=== PATIENT | female | born 1990 | race Two or more races ===

== ENCOUNTER 2023-09-09 09:11 | Observation (INO) | payer BC ==
[2023-09-09 10:56] LABS: Basophils # (auto) 0.1 10 ^3/uL (0-0.2); Basophils % (auto) 0.5 % (0.0-2.0); Eosinophils # (auto) 0.1 10 ^3/uL (0-0.8); Eosinophils % (auto) 0.7 % (0.0-7.0); Hematocrit 36.3 % (36.0-46.0); Hemoglobin 11.9 g/dL (12.2-16.2); Lymphocytes # (auto) 2.1 10 ^3/uL (0.4-5.4); Lymphocytes % (auto) 15.3 % (10.0-50.0); Mean Corpuscular Hemoglobin 28.6 pg (28.0-32.0); Mean Corpuscular Hgb Conc. 32.7 g/dL (32.0-36.0); Mean Corpuscular Volume 87.2 fL (80.0-100.0); Monocytes # (auto) 1.1 10 ^3/uL (0-1.3); Monocytes % (auto) 7.9 % (0.0-12.0); Neutrophils # (auto) 10.3 10 ^3/uL (1.6-8.6); Neutrophils % (auto) 75.6 % (37.0-80.0); Red Blood Cells 4.16 10^6/uL (4.0-5.20); Red Cell Distribution Width 14.2 % (11.8-14.3); White Blood Cell 13.6 10^3/uL (4.4-10.8)
[2023-09-09 11:02] LABS: Protein, Urine < 6.0 mg/dL (0.0-11.9)
[2023-09-09 11:05] LABS: Creatinine, Urine 18.88 mg/dL (30.0-125.0); Urine Protein/Creatinine Ratio 0.32
[2023-09-09 11:15] LABS: INR 0.93 (0.9-1.15); Partial Thromboplastin Time 28.5 SEC (24.5-34.5); Prothrombin Time 9.8 sec (9.3-11.8)
[2023-09-09 11:28] LABS: Urine Bacteria FEW /hpf (None Seen); Urine Blood Negative /uL (Negative); Urine Clarity Clear (Clear); Urine Color Colorless (Yellow); Urine Protein, UAD Negative (Negative); Urine Specific Gravity 1.003 (1.001-1.035); Urine Urobilinogen Normal (Negative); Urine WBC <1 /hpf (0 - 5)
[2023-09-09 11:54] LABS: Alanine Aminotransferase 17 U/L (7-40); Alkaline Phosphatase 119 U/L (46-116); Anion Gap 8 (5-15); Aspartate Aminotransferase 21 U/L (13-40); Bilirubin, Total 0.3 mg/dL (0.2-1.0); Calcium 9.4 mg/dL (8.5-10.1); Carbon Dioxide 23 mmol/L (20-30); Chloride 109 mmol/L (98-107); Glucose 67 mg/dL (74-106); Potassium 3.9 mmol/L (3.5-5.1); Sodium 140 mmol/L (136-145)
[2023-09-09 11:55] LABS: Total Protein 6.8 g/dL (5.7-8.2)
[2023-09-09 11:58] LABS: BUN/Creatinine Ratio 10.4 (10.0-20.0); Blood Urea Nitrogen < 5 mg/dL (9-23)
[2023-09-09 12:10] LABS: Uric Acid 4.4 mg/dL (3.1-7.8)
[2023-09-09] MEDS ORDERED: PREN-96 PO (12:34)
== END 2023-09-09 12:52 | disposition home or self-care (01) ==
LOC: LDRP 09:11 → UNDOADMOB 09:11 → LDRP 09:42 → UNDODISOB 12:52
PROVIDERS: ADMIT Obstetrics & Gynecology; ATTEND Obstetrics & Gynecology
DX: O62.9 Abnormality of forces of labor, unspecified (principal); Z3A.35 35 weeks gestation of pregnancy; Z79.899 Other long term (current) drug therapy
CPT/HCPCS: 36415; 59025; 76818; 80053; 81001; 81002; 82570; 84156; 84550; 85025; 85610; 85730; 94760; G0378

== ENCOUNTER 2023-09-13 07:58 | Observation (INO) | payer BC ==
[~2023-09-13 07:58] MED LIST: PREN-96 PO
[2023-09-13 08:52] LABS: Basophils # (auto) 0 10 ^3/uL (0-0.2); Basophils % (auto) 0.3 % (0.0-2.0); Eosinophils # (auto) 0.1 10 ^3/uL (0-0.8); Eosinophils % (auto) 0.6 % (0.0-7.0); Hematocrit 35.9 % (36.0-46.0); Hemoglobin 11.7 g/dL (12.2-16.2); Lymphocytes # (auto) 1.2 10 ^3/uL (0.4-5.4); Lymphocytes % (auto) 11.9 % (10.0-50.0); Mean Corpuscular Hemoglobin 28.5 pg (28.0-32.0); Mean Corpuscular Hgb Conc. 32.6 g/dL (32.0-36.0); Mean Corpuscular Volume 87.5 fL (80.0-100.0); Monocytes # (auto) 0.8 10 ^3/uL (0-1.3); Monocytes % (auto) 7.6 % (0.0-12.0); Neutrophils # (auto) 8.4 10 ^3/uL (1.6-8.6); Neutrophils % (auto) 79.6 % (37.0-80.0); Red Blood Cells 4.11 10^6/uL (4.0-5.20); Red Cell Distribution Width 14.4 % (11.8-14.3); White Blood Cell 10.5 10^3/uL (4.4-10.8)
[2023-09-13 09:05] LABS: Chloride 109 mmol/L (98-107); Potassium 3.8 mmol/L (3.5-5.1); Sodium 137 mmol/L (136-145)
[2023-09-13 09:08] LABS: Anion Gap 6 (5-15); Calcium 8.7 mg/dL (8.7-10.4); Carbon Dioxide 22 mmol/L (20-30)
[2023-09-13 09:11] LABS: INR 0.94 (0.9-1.15); Partial Thromboplastin Time 28.8 SEC (24.5-34.5); Prothrombin Time 9.9 sec (9.3-11.8)
[2023-09-13 09:12] LABS: Uric Acid 5.4 mg/dL (3.1-7.8)
[2023-09-13 09:13] LABS: Alkaline Phosphatase 118 U/L (46-116); BUN/Creatinine Ratio 9.6 (10.0-20.0); Blood Urea Nitrogen < 5 mg/dL (9-23); Glucose 103 mg/dL (74-106)
[2023-09-13 09:15] LABS: Alanine Aminotransferase 16 U/L (7-40); Albumin 3.7 g/dL (3.2-4.8); Aspartate Aminotransferase 20 U/L (13-40); Bilirubin, Total 0.3 mg/dL (0.2-1.0); Total Protein 6.5 g/dL (5.7-8.2)
[2023-09-13 09:31] LABS: Urine Bacteria FEW /hpf (None Seen); Urine Blood 1+ /uL (Negative); Urine Clarity HAZY (Clear); Urine Color Yellow (Yellow); Urine Mucus FEW (None Seen); Urine Protein, UAD 1+ (Negative); Urine Specific Gravity 1.014 (1.001-1.035); Urine Urobilinogen Normal (Negative); Urine WBC 11 /hpf (0 - 5)
[2023-09-13 09:45] LABS: Protein, Urine 32.1 mg/dL (0.0-11.9)
[2023-09-13 09:48] LABS: Creatinine, Urine 158.1 mg/dL (30.0-125.0); Urine Protein/Creatinine Ratio 0.2
== END 2023-09-13 10:05 | disposition home or self-care (01) ==
LOC: UNDOADMOB 07:58 → LDRP 07:58
PROVIDERS: ADMIT Obstetrics & Gynecology; ATTEND Obstetrics & Gynecology
DX: O13.3 Gestational [pregnancy-induced] hypertension without significant proteinuria, third trimester (principal); Z3A.36 36 weeks gestation of pregnancy
CPT/HCPCS: 36415; 59025; 76818; 80053; 81001; 81002; 82570; 84156; 84550; 85025; 85610; 85730; G0378

== ENCOUNTER 2023-09-15 08:09 | Observation (INO) | payer BC ==
[~2023-09-15] VITALS: Ht 170.2 cm; Wt 113.4 kg
[2023-09-15 08:38] LABS: Urine Bacteria FEW /hpf (None Seen); Urine Blood 1+ /uL (Negative); Urine Clarity HAZY (Clear); Urine Color Yellow (Yellow); Urine Hyaline Cast FEW /lpf (0 - 2); Urine Mucus FEW (None Seen); Urine Protein, UAD 1+ (Negative); Urine Specific Gravity 1.018 (1.001-1.035); Urine Urobilinogen Normal (Negative); Urine WBC 18 /hpf (0 - 5); Urine pH 6.5 (5.0-8.0)
[2023-09-15 08:47] LABS: Protein, Urine 30.5 mg/dL (0.0-11.9)
[2023-09-15 08:49] LABS: Creatinine, Urine 162.61 mg/dL (30.0-125.0); Urine Protein/Creatinine Ratio 0.19
[2023-09-15 08:53] LABS: Basophils # (auto) 0 10 ^3/uL (0-0.2); Basophils % (auto) 0.3 % (0.0-2.0); Eosinophils # (auto) 0.1 10 ^3/uL (0-0.8); Eosinophils % (auto) 0.5 % (0.0-7.0); Hematocrit 36.3 % (36.0-46.0); Hemoglobin 11.9 g/dL (12.2-16.2); Lymphocytes # (auto) 1.4 10 ^3/uL (0.4-5.4); Lymphocytes % (auto) 11.8 % (10.0-50.0); Mean Corpuscular Hemoglobin 28.7 pg (28.0-32.0); Mean Corpuscular Hgb Conc. 32.7 g/dL (32.0-36.0); Mean Corpuscular Volume 87.7 fL (80.0-100.0); Monocytes % (auto) 8.5 % (0.0-12.0); Neutrophils # (auto) 9.3 10 ^3/uL (1.6-8.6); Neutrophils % (auto) 78.9 % (37.0-80.0); Red Blood Cells 4.14 10^6/uL (4.0-5.20); Red Cell Distribution Width 14.1 % (11.8-14.3); White Blood Cell 11.7 10^3/uL (4.4-10.8)
[2023-09-15 09:14] LABS: Protein, Urine 17.9 mg/dL (0.0-11.9)
[2023-09-15 09:15] LABS: INR 0.93 (0.9-1.15); Partial Thromboplastin Time 28.2 SEC (24.5-34.5); Prothrombin Time 9.8 sec (9.3-11.8)
[2023-09-15 09:55] LABS: 24 Hr. Total Protein, Urine 268.5 mg/24 Hr (<149.1)
[2023-09-15 10:23] LABS: Alanine Aminotransferase 26 U/L (7-40); Albumin 3.8 g/dL (3.2-4.8); Alkaline Phosphatase 118 U/L (46-116); Anion Gap 9 (5-15); Aspartate Aminotransferase 27 U/L (13-40); Calcium 8.7 mg/dL (8.7-10.4); Carbon Dioxide 20 mmol/L (20-30); Chloride 110 mmol/L (98-107); Glucose 83 mg/dL (74-106); Potassium 3.8 mmol/L (3.5-5.1); Sodium 139 mmol/L (136-145)
[2023-09-15 10:24] LABS: Bilirubin, Total 0.3 mg/dL (0.2-1.0); Total Protein 6.6 g/dL (5.7-8.2)
[2023-09-15 10:29] LABS: BUN/Creatinine Ratio 10.6 (10.0-20.0); Blood Urea Nitrogen < 5 mg/dL (9-23)
== END 2023-09-15 10:59 | disposition home or self-care (01) ==
LOC: LDRP 08:09
PROVIDERS: ADMIT Obstetrics & Gynecology; ATTEND Obstetrics & Gynecology
DX: O13.3 Gestational [pregnancy-induced] hypertension without significant proteinuria, third trimester (principal); O62.9 Abnormality of forces of labor, unspecified; Z3A.36 36 weeks gestation of pregnancy
CPT/HCPCS: 36415; 59025; 76818; 80053; 81001; 81002; 82570; 84156; 84550; 85025; 85610; 85730; G0378

== ENCOUNTER 2023-09-17 08:24 | Observation (INO) | payer BC ==
[2023-09-17 09:36] LABS: Fern Testing Negative
[2023-09-17] MEDS ORDERED: LACTATED RINGER'S 1,000 ML IV ONE (09:45)
== END 2023-09-17 10:41 | disposition home or self-care (01) ==
LOC: UNDOADMOB 08:24 → LDRP 08:24
PROVIDERS: ADMIT Obstetrics & Gynecology; ATTEND Obstetrics & Gynecology
DX: O62.9 Abnormality of forces of labor, unspecified (principal); Z3A.37 37 weeks gestation of pregnancy
CPT/HCPCS: 59025; 76818; 81002; 84112; 96360; 96361; G0378; Q0114

== ENCOUNTER 2023-09-18 07:06 | Inpatient (IN) | payer BC ==
[~2023-09-18] VITALS: Ht 170.2 cm; Wt 125.2 kg
[2023-09-18] MEDS ORDERED: miSOPROStol 50 MCG per PRE-CUT 1/2 TAB PO PRN (09:15)
[2023-09-18] MEDS ORDERED: WITCH HAZEL-GLYCERIN PAD TOP PRN (09:15)
[2023-09-18] MEDS ORDERED: LACT. RINGERS/OXYTOCIN 20UNITS 500 ML IV ONE ×2 (09:15→09:45)
[2023-09-18] MEDS ORDERED: PHISODERM TOP SOLN 240ML BTL TOP PRN (09:15)
[2023-09-18] MEDS ORDERED: DERMOPLAST 60ML BOTTLE TOP PRN (09:15)
[2023-09-18] MEDS ORDERED: PENICILLIN G POT 5MIL/D5 50ML 50 ML IV ONE (09:15)
[2023-09-18] MEDS ORDERED: LIDOCAINE 2%HCL (LOCAL ANESTH.) INJ 20ML MDV IJ PRN (09:15)
[2023-09-18] MEDS ORDERED: PROMETHAZINE HCL 25 MG/ML 1ML IM PRN (09:15)
[2023-09-18] MEDS ORDERED: BUTORPHANOL TARTRATE 2 MG/1 ML VIAL IV PRN ×2 (09:15)
[2023-09-18] MEDS ORDERED: PROMETHAZINE HCL 25 MG/ML 1ML IV PRN (09:15)
[2023-09-18 09:55] LABS: Urine Epithelial Cast None Seen /hpf (<5)
[2023-09-18 09:59] LABS: Basophils # (auto) 0 10 ^3/uL (0-0.2); Basophils % (auto) 0.3 % (0.0-2.0); Eosinophils # (auto) 0.1 10 ^3/uL (0-0.8); Eosinophils % (auto) 0.6 % (0.0-7.0); Hematocrit 34.4 % (36.0-46.0); Hemoglobin 11.1 g/dL (12.2-16.2); Lymphocytes # (auto) 2.2 10 ^3/uL (0.4-5.4); Lymphocytes % (auto) 16.1 % (10.0-50.0); Mean Corpuscular Hemoglobin 28.2 pg (28.0-32.0); Mean Corpuscular Hgb Conc. 32.4 g/dL (32.0-36.0); Monocytes # (auto) 1.3 10 ^3/uL (0-1.3); Monocytes % (auto) 9.7 % (0.0-12.0); Neutrophils % (auto) 73.3 % (37.0-80.0); Red Blood Cells 3.95 10^6/uL (4.0-5.20); Red Cell Distribution Width 14.1 % (11.8-14.3); White Blood Cell 13.7 10^3/uL (4.4-10.8)
[2023-09-18 10:06] LABS: Urine Bacteria FEW /hpf (None Seen); Urine Blood TRACE /uL (Negative); Urine Clarity HAZY (Clear); Urine Color Yellow (Yellow); Urine Mucus FEW (None Seen); Urine Protein, UAD TRACE (Negative); Urine Specific Gravity 1.019 (1.001-1.035); Urine Urobilinogen Normal (Negative); Urine WBC 8 /hpf (0 - 5); Urine pH 6.5 (5.0-8.0)
[2023-09-18 10:09] LABS: Protein, Urine 30.7 mg/dL (0.0-11.9)
[2023-09-18 10:10] LABS: Creatinine, Urine 136.34 mg/dL (30.0-125.0); Urine Protein/Creatinine Ratio 0.23
[2023-09-18 10:12] LABS: Amphetamine Screen, Urine Neg (NEGATIVE); Barbiturate Scree,Urine Neg (NEGATIVE); Benzodiazephine Screen, Urine Neg (NEGATIVE); Cocaine Screen, Urine Neg (NEGATIVE); Opiate Scree,Urine Neg (NEGATIVE)
[2023-09-18 10:13] LABS: Cannabinoid Screen, Urine Neg (NEGATIVE); Phencyclidine Screen, Urine Neg (NEGATIVE)
[2023-09-18 10:13] LABS: Alanine Aminotransferase 31 U/L (7-40); Albumin 3.6 g/dL (3.2-4.8); Alkaline Phosphatase 113 U/L (46-116); Anion Gap 8 (5-15); Aspartate Aminotransferase 29 U/L (13-40); Calcium 8.8 mg/dL (8.5-10.1); Carbon Dioxide 23 mmol/L (20-30); Chloride 109 mmol/L (98-107); Glucose 77 mg/dL (74-106); Potassium 3.7 mmol/L (3.5-5.1); Sodium 140 mmol/L (136-145)
[2023-09-18 10:14] LABS: Bilirubin, Total 0.3 mg/dL (0.2-1.0); Total Protein 6.1 g/dL (5.7-8.2)
[2023-09-18 10:29] LABS: INR 0.93 (0.9-1.15); Partial Thromboplastin Time 29.5 SEC (24.5-34.5); Prothrombin Time 9.8 sec (9.3-11.8)
[2023-09-18 11:09] LABS: BUN/Creatinine Ratio 10.6 (10.0-20.0); Blood Urea Nitrogen < 5 mg/dL (9-23)
[2023-09-18] MEDS ORDERED: NALOXONE HCL 0.4 MG/ML VIAL IV ONE (12:30)
[2023-09-18] MEDS ORDERED: fentaNYL CITRATE 100 MCG/2 ML VL IV ONE (12:30)
[2023-09-18] MEDS ORDERED: LIDOCAINE HCL 2 %PF INJ 10ML AMP IJ ONE (12:30)
[2023-09-18] MEDS ORDERED: ePHEDrine SULFATE 50 MG/ML AMP IV ONE (12:30)
[2023-09-18] MEDS ORDERED: LACTATED RINGER'S 1,000 ML IV ONE (12:30)
[2023-09-18] MEDS: LACTATED RINGER'S 1,000 ML IV SCH ×2 (12:39→12:49)
[2023-09-18] MEDS ORDERED: ROPIVACAINE HCL 100 ML ONE (12:55)
[2023-09-18] MEDS ORDERED: PENICILLIN G POTASSIUM 2,500,000 UNITS in D5W 5% 50 ML IV SCH ×2 (13:15→14:00)
[2023-09-18] MEDS ORDERED: LACT. RINGERS/OXYTOCIN 20UNITS 1,000 ML IV SCH (14:00)
[2023-09-18] MEDS ORDERED: TERBUTALINE SULFATE 1 MG/ML 1ML VIAL SC PRN (14:00)
[2023-09-18] MEDS ORDERED: ACETAMINOPHEN 325 MG TAB PO PRN (18:30)
[2023-09-18] MEDS ORDERED: ONDANSETRON ODT 4 MG TAB PO PRN (18:30)
[2023-09-18] MEDS ORDERED: IBUPROFEN 600 MG TAB PO PRN (18:30)
[2023-09-18 18:59] VITALS: BP 116/72; PULSE 101; RESP 14; TEMP 98.4; O2SAT 95
[2023-09-18 22:50] VITALS: BP 127/79; PULSE 102; RESP 18; TEMP 98.2; O2SAT 95
[2023-09-19 03:30] VITALS: BP 131/78; PULSE 91; RESP 20; TEMP 97.7; O2SAT 98
[2023-09-19 07:00] VITALS: BP 134/82; PULSE 95; RESP 18; TEMP 98; O2SAT 97
[2023-09-19 08:07] LABS: RPR Non Reactive (Non Reactive)
[2023-09-19 11:00] VITALS: BP 124/80; PULSE 94; RESP 18; TEMP 97.9; O2SAT 96
[2023-09-19 15:00] VITALS: BP 142/90; PULSE 98; RESP 16; TEMP 98; O2SAT 97
[2023-09-22 20:06] LABS: Treponema pallidum Ab (FTA-Ab) Non Reactive (Non Reactive)
== END 2023-09-19 17:18 | disposition home or self-care (01) | DRG 806 ==
LOC: LDRP 07:06 → OBSVTOIN 08:50 → LDRP 08:51
PROVIDERS: ADMIT Obstetrics & Gynecology; ATTEND Obstetrics & Gynecology
PROC: 10E0XZZ Delivery of Products of Conception, External Approach (ICD-10-PCS; principal; 2023-09-18)
PROC: 3E0R3BZ Introduction of Anesthetic Agent into Spinal Canal, Percutaneous Approach (ICD-10-PCS; 2023-09-18)
PROC: 00HU33Z Insertion of Infusion Device into Spinal Canal, Percutaneous Approach (ICD-10-PCS; 2023-09-18)
DX: O69.81X0 Labor and delivery complicated by cord around neck, without compression, not applicable or unspecified (principal); O41.03X0 Oligohydramnios, third trimester, not applicable or unspecified; Z37.0 Single live birth; O99.214 Obesity complicating childbirth; E66.01 Morbid (severe) obesity due to excess calories; Z3A.37 37 weeks gestation of pregnancy
CPT/HCPCS: 36415; 59025; 59409; 62282; 76815; 80053; 80307; 81001; 81002; 82570; 84156; 84550; 85025; 85610; 85730; 86592; 86850; 86900; 86901; 94760; 96360; 96361; 96365; 96366; G0378; J2540; J2590; J7060